=== PATIENT | male | born 1980 | race Caucasian/White ===

== ENCOUNTER 2018-01-22 07:15 | Emergency (ER) | payer BC ==
[2018-01-22 07:42] VITALS: BP 129/73
--- NOTE | 2018-01-22 08:00 | ED ---
Throat Pain/Nasal Congestion - HPI Summary HPI Summary: 37 yr old male with mild runny nose, sore throat. Onset two days ago. He thinks he could have strep. No drooling, stridor, fever. - History of Current Complaint Chief Complaint: UCRespiratory Time Seen by Provider: 01/22/18 07:32 - Allergies/Home Medications Allergies/Adverse Reactions: Allergies Allergy/AdvReac Type Severity Reaction Status Date / Time No Known Allergies Allergy Verified 01/22/18 07:36 Home Medications: Home Medications Hydrochlorothiazide TAB* [Hydrodiuril TAB*] 25 mg PO DAILY 01/22/18 [History Confirmed 01/22/18] Lisinopril TAB* [Prinivil TAB*] 10 mg PO DAILY 01/22/18 [History Confirmed 01/22] PMH/Surg Hx/FS Hx/Imm Hx Cardiovascular History: Reports: Hx Hypertension Infectious Disease History: No Infectious Disease History: Denies: Traveled Outside the [place] in Last 30 Days - Social History Alcohol Use: None Substance Use Type: Reports: None Smoking Status (MU): Former Smoker Review of Systems All Other Systems Reviewed And Are Negative: Yes Physical Exam Triage Information Reviewed: Yes Vital Signs On Initial Exam: Initial Vitals Temp Pulse Resp BP Pulse Ox 97.2 F 69 18 129/73 97 01/22/18 07:38 01/22/18 07:38 01/22/18 07:38 01/22/18 07:38 01/22/18 07:38 Vital Signs Reviewed: Yes Appearance: Positive: Well-Appearing, No Pain Distress Skin: Positive: Warm, Skin Color Reflects Adequate Perfusion Head/Face: Positive: Normal Head/Face Inspection Eyes: Positive: EOMI, MARIA EUGENIA ENT: Positive: Pharyngeal erythema, Nasal congestion, TMs normal Neck: Positive: Nontender Respiratory/Lung Sounds: Positive: Clear to Auscultation, Breath Sounds Present Cardiovascular: Positive: RRR. Negative: Murmur Abdomen Description: Positive: Nontender Musculoskeletal: Positive: Strength/ROM Intact Neurological: Positive: Sensory/Motor Intact, Alert, Oriented to Person Place, Time, CN Intact II-III, Normal Gait, Speech Normal Psychiatric: Positive: Normal - Aishwarya Coma Scale Best Eye Response: 4 - Spontaneous Best Motor Response: 6 - Obeys Commands Best Verbal Response: 5 - Oriented Coma Scale Total: 15 Diagnostics - Vital Signs Vital Signs Temp Pulse Resp BP Pulse Ox 06/04/18 07:38 97.2 F 69 18 129/73 97 - Laboratory Lab Statement: Any lab studies that have been ordered have been reviewed, and results considered in the medical decision making process. EENT Course/Dx - Course Course Of Treatment: 37 yr old with URI. - Diagnoses Provider Diagnoses: Upper respiratory infection Discharge - Sign-Out/Discharge Documenting (check all that apply): Discharge/Admit/Transfer - Discharge Plan Condition: Good Disposition: HOME Patient Education Materials: Upper Respiratory Infection (ED) Referrals: Aym Cha MD [Primary Care Provider] - 2 Days - Billing Disposition and Condition Condition: GOOD Disposition: HOME
== END 2018-01-22 08:00 | disposition home or self-care (01) ==
LOC: UCCORT 07:15
DX: J06.9 Acute upper respiratory infection, unspecified (principal); I10 Essential (primary) hypertension
CPT/HCPCS: 87651; 99201; G0463

== ENCOUNTER 2018-03-28 07:03 | Emergency (ER) | payer BC ==
[2018-03-28 07:26] VITALS: BP 157/88
--- NOTE | 2018-03-28 07:35 | UC ---
Throat Pain/Nasal Kuldip HPI - HPI Summary HPI Summary: Patient with a sore throat progressive since Monday. Patient states initially thought it was allergies as he had been hiking. Patient states has painful swallowing. Patient states he feels he has to for swallowing. Patient denies fevers or chills. Patient states really warm or really cold beverages helping his so. No analgesia taken. No drooling. No shortness of breath. No rash. No headache. Ears feel full. Sinuses mildly congested. Patient denies sick contacts Patient's medications reviewed this visit. - History of Current Complaint Chief Complaint: UCRespiratory Stated Complaint: SORE THROAT Time Seen by Provider: 03/28/18 07:34 Hx Obtained From: Patient Onset/Duration: Gradual Onset Severity: Mild Pain Intensity: 3 Pain Scale Used: 0-10 Numeric Cough: Nonproductive - Allergies/Home Medications Allergies/Adverse Reactions: Allergies Allergy/AdvReac Type Severity Reaction Status Date / Time No Known Allergies Allergy Verified 03/28/18 07:22 Home Medications: Home Medications Cetirizine* [ZyrTEC 10 MG TAB*] 10 mg PO DAILY 03/28/18 [History Confirmed 03/28] PMH/Surg Hx/FS Hx/Imm Hx Previously Healthy: Yes - Surgical History Surgical History: Yes Surgery Procedure, Year, and Place: Tympanostomy tubes, vasectomy - Family History Known Family History: Positive: Hypertension - Social History Occupation: Employed Full-time - IT management at [employer] Lives: With Family Alcohol Use: None Substance Use Type: None Smoking Status (MU): Former Smoker When Did the Patient Quit Smoking/Using Tobacco: 2003 Review of Systems Constitutional: Negative ENT: Sore Throat All Other Systems Reviewed And Are Negative: Yes Physical Exam - Summary Physical Exam Summary: Vital Signs Reviewed: Yes A+Ox3, no distress, swallowing secretions without difficulty Eyes: Conjunctiva Clear, MARIA EUGENIA. EOM intact and full ENT: Hearing grossly normal TM x 2 clear, turbinates boggy mmoist, uvula midline, mild tonsillar edema + erythema b/l exudate -symmetric Neck: Positive: Supple Respiratory: Positive: No respiratory distress, No accessory muscle use + CTA throughout no w/r Cardiovascular: RRR nl s1, s2 no m/r CBT <2 sec abd soft + BS nt/nd no guarding, no distension Musculoskeletal Exam: VICENTE x 4 without difficulty Strength Intact, ROM Intact Neurological: Positive: Alert, + sensation throughout Psychological: Positive: Normal Response To Family Skin: Positive: no rash, no ecchymosis Triage Information Reviewed: Yes Vital Signs: Initial Vital Signs Temp 98.1 F 03/28/18 07:23 Pulse 73 03/28/18 07:23 Resp 17 03/28/18 07:23 BP 157/88 03/28/18 07:23 Pulse Ox 99 03/28/18 07:23 Throat Pain/Nasal Course/Dx - Course Course Of Treatment: Patient presents with progressive sore throat since Monday. Patient with painful swallowing but no difficulty with secretions. Patient has been able to eat and drink. No analgesia taken. Patient's vital signs reviewed. On exam patient with erythema and exudate to bilateral tonsils. They're symmetric in uvula is midline. Strep is positive. Will place patient on 5 day course of prednisone as well as amoxicillin. Discussed with patient secretion precaution. Motrin/Tylenol for pain. Cold fluids. Strict return precautions. Eischen comfortable in agreement with plan. Work note given. Patient's blood pressure was mildly elevated. Recommended follow up PCP - Differential Dx/Diagnosis Provider Diagnoses: strep pharyngitis Discharge - Sign-Out/Discharge Documenting (check all that apply): Patient Departure - Discharge Plan Condition: Stable Disposition: HOME Prescriptions: Amoxicillin PO (*) [Amoxicillin 875 MG (*)] 875 mg PO BID #20 tab predniSONE TAB* [Deltasone TAB*] 50 mg PO DAILY #5 tab Patient Education Materials: Strep Throat (ED) Forms: *Work Release Referrals: Amy Cha MD [Primary Care Provider] - Additional Instructions: - Okay to alternate ibuprofen (Advil, Motrin) 600mg and Tylenol 1000mg every 3 hours for pain. Take with food. Do NOT take for more than 4-5 days - Okay to gargle and spit every 4 hours as needed for pain - Stay well hydrated - frequent sips of cold fluids will be soothing to your throat (popsicles, jello, ice cream, ice water). Avoid excess caffeine until your symptoms have resolved. - Do not share eating, drinking utensils. Throw out your toothbrush when your symptoms resolved - These infections are spread by oral secretions. Do not share eating or drinking utensils. Frequent hand washing is important. Clean items that may get your secretions on them such as cell phones, ipads, computer mouse, television remotes. Once you have been on antbiotics for 2 days, change your pillowcase and your toothbrush - Take prednisone as prescribed until gone - contact your doctor or return with questions or concern - Billing Disposition and Condition Condition: STABLE Disposition: Home
== END 2018-03-28 07:56 | disposition home or self-care (01) ==
LOC: UCCORT 07:03
DX: J02.0 Streptococcal pharyngitis (principal); Z87.891 Personal history of nicotine dependence
CPT/HCPCS: 87651; 99212; G0463

== ENCOUNTER 2019-06-03 07:04 | Emergency (ER) | payer BC, OTHER ==
[2019-06-03 07:23] VITALS: BP 150/102
--- NOTE | 2019-06-03 08:00 | UC ---
General HPI - HPI Summary HPI Summary: Patient is a 38-year-old gentleman with a history of hypertension for which is known to medications as well as prediabetic state. Patient has remote history of area patient states on Monday he developed some discomfort in his left arm. Patient states it was mostly shoulder but felt sensation to his left dorsal forearm. Patient denies paresthesias or weakness. Patient states it felt heavy and tired in the arm. Patient's denies chest pain or shortness of breath. Patient denies abdominal pain. Patient states he did develop some nausea, and have fatigue throughout the day. Patient states he has a decreased appetite. Patient does admit he looked on the Internet and is concerned that this may have made his symptoms suggestive however he was concerned given his father of an [place] at the age of 36. Patient did not take anything for pain. Patient was able to go for a walk and "with his family yesterday without any difficulty. Patient states though his arm continues to feel very tired. Patient's medications reviewed this visit. - History of Current Complaint Chief Complaint: UCUpperExtremity Stated Complaint: LEFT SHOULDER STRAIN, STOMACH COMPLAINT Time Seen by Provider: 06/03/19 07:58 Hx Obtained From: Patient Pain Intensity: 0 - Allergy/Home Medications Allergies/Adverse Reactions: Allergies Allergy/AdvReac Type Severity Reaction Status Date / Time No Known Allergies Allergy Verified 06/03/19 07:23 PMH/Surg Hx/FS Hx/Imm Hx - Surgical History Surgical History: Yes Surgery Procedure, Year, and Place: Tympanostomy tubes, vasectomy - Family History Known Family History: Positive: Hypertension - Social History Alcohol Use: None Substance Use Type: None Smoking Status (MU): Former Smoker When Did the Patient Quit Smoking/Using Tobacco: 2003 Review of Systems All Other Systems Reviewed And Are Negative: Yes Constitutional: Positive: Fatigue Gastrointestinal: Positive: Nausea Musculoskeletal: Positive: Other: - left arm Physical Exam - Summary Physical Exam Summary: Vital Signs Reviewed: Yes A+Ox3, no distress Eyes: Conjunctiva Clear, MARIA EUGENIA. EOM intact and full ENT: Hearing grossly normal TM x 2 clear, mmoist, uvula midline, no exudate, no erythema Neck: Positive: Supple Respiratory: Positive: No respiratory distress, No accessory muscle use + CTA throughout no w/r Cardiovascular: RRR nl s1, s2 no m/r CBT <2 sec abd soft + BS nt/nd no guarding, no distension Musculoskeletal Exam: VICENTE x 4 without difficulty Strength Intact, ROM Intact Neurological: Positive: Alert, + sensation throughout Psychological: Positive: Normal Response To examiner Skin: Positive: no rash, no ecchymosis Vital Signs: Initial Vital Signs Temp 98.1 F 06/03/19 07:17 Pulse 81 06/03/19 07:17 Resp 22 06/03/19 07:17 BP 150/102 06/03/19 07:17 Pulse Ox 100 06/03/19 07:17 Diagnostics - EKG Cardiac Rate: NL - 76 Cardiac Rhythm: Sinus: Normal Ectopy: None ST Segment: Normal Course/Dx - Course Course Of Treatment: Court Car, nurse practitioner in the emergency department - Diagnoses Provider Diagnosis: Arm pain, Hypertension Discharge ED - Sign-Out/Discharge Documenting (check all that apply): Patient Departure All imaging exams completed and their final reports reviewed: No Studies - Discharge Plan Condition: Stable Disposition: HOME-RECOMMEND TO ED Patient Education Materials: Arm Pain (ED) Referrals: Akilah Mae PA [Primary Care Provider] - Additional Instructions: The doctor that evaluated you today thinks that you need additional testing that can be completed the emergency department. It is recommended that you go directly to emergency department for further evaluation. This evaluation included blood work or imaging. This testing will be directed and decided by the provider that evaluates you at the emergency department. If pain becomes worse, you feel lightheaded, you have uncontrolled vomiting, or you have any other concerns while you are being driven to emergency department as recommended to pullover and contact 911. - Billing Disposition and Condition Condition: STABLE Disposition: Home-Recommend to ED
== END 2019-06-03 08:19 | disposition home health service (06) ==
LOC: UCCORT 07:04
DX: M79.602 Pain in left arm (principal); I10 Essential (primary) hypertension; R73.03 Prediabetes; R11.0 Nausea; Z82.49 Family history of ischemic heart disease and other diseases of the circulatory system; Z87.891 Personal history of nicotine dependence
CPT/HCPCS: 93005; 99212; G0463